=== PATIENT | female | born 1990 | race Caucasian/White ===

== ENCOUNTER → 2018-05-22 | Outpatient (CLI) | payer BC ==
[2018-05-23 13:08] LABS: Beef IgE <0.35 kU/L (<0.35); Beef IgE Class CLASS 0
[2018-05-23 13:09] LABS: Avocado Class CLASS 0; Banana IgE Class CLASS 0; Hazelnut IgE <0.35 kU/L (<0.35); Hazelnut IgE Class CLASS 0; Kiwi IgE <0.35 kU/L (<0.35); Latex IgE Class CLASS 0
[2018-05-24 19:04] LABS: Coffee IgG 3.4 mcg/mL (< 2.0); Pork IgG 4.2 mcg/mL (< 2.0)
[2018-05-24 19:05] LABS: Chicken Meat IgG <2.0 mcg/mL (< 2.0); Corn IgG <2.0 mcg/mL (< 2.0); Cow's Milk IgG 53.7 mcg/mL (< 2.0); Peanut IgG <2.0 mcg/mL (< 2.0); Potato IgG <2.0 mcg/mL (< 2.0); Soybean IgG <2.0 mcg/mL (< 2.0); Tomato IgG <2.0 mcg/mL (< 2.0); Wheat IgG 3.9 mcg/mL (< 2.0)
== END | disposition home or self-care (01) ==
LOC: LABWHC1 17:04
PROVIDERS: ATTEND Otolaryngology
DX: L50.0 Allergic urticaria (principal); J30.89 Other allergic rhinitis; B44.89 Other forms of aspergillosis
CPT/HCPCS: 36415; 86001; 86003

== ENCOUNTER 2022-11-18 10:46 | Observation (INO) | payer BC ==
[2022-11-18] MEDS ORDERED: SODIUM CHLORIDE 0.9% 500 ML 500 ML IV STA (11:27)
[2022-11-18 12:13] LABS: Basophils % (A) 0 %; Eosinophils # (A) 0.1 k/uL (0-0.7); Eosinophils % (A) 1 %; HCT 38.1 % (34.0-46.0); Lymphocytes # (A) 2.7 k/uL (1.0-4.8); Lymphocytes % (A) 18 %; MCH 32.5 pg (25.0-35.0); MCHC 34.1 g/dL (31.0-37.0); MCV 95.3 fL (80.0-100.0); Mean Platelet Volume 7.5; Monocytes # (A) 0.3 k/uL (0-1.0); Monocytes % (A) 2 %; Neutrophils # (A) 11.7 k/uL (1.3-7.7); Neutrophils % (A) 78 %; Platelet Count 228 k/uL (150-450); RBC 3.99 m/uL (3.80-5.40); RDW 12.9 % (11.5-15.5); WBC 15.1 k/uL (3.8-10.6)
[2022-11-18 12:18] LABS: Appearance,Urine Cloudy (Clear); Bacteria,Urine Moderate /hpf; Bilirubin,Urine Negative (Negative); Blood,Urine Negative (Negative); Color,Urine Yellow; Glucose,Urine (UA) Negative (Negative); Ketones,Urine Negative (Negative); Leukocyte Esterase,Urine Small (Negative); Mucus,Urine Rare /hpf; Nitrite,Urine Negative (Negative); PH, Urine 6.5 (5.0-8.0); Protein,Urine Negative (Negative); Specific Gravity,Urine 1.015 (1.001-1.035); Squamous Epithelial Cell,Urine 2 /hpf (0-4); Urobilinogen,Urine <2.0 mg/dL (<2.0); WBC,Urine 5 /hpf (0-5)
[2022-11-18 12:24] LABS: ALT 17 U/L (4-34); AST 20 U/L (14-36); African American GFR (CKD) >90 (>60 ml/min/1.73 sqM); Albumin 3.6 g/dL (3.5-5.0); Alkaline Phosphatase 60 U/L (38-126); Anion Gap 8 mmol/L; Blood Urea Nitrogen 6 mg/dL (7-17); Calcium 9.9 mg/dL (8.4-10.2); Carbon Dioxide 22 mmol/L (22-30); Chloride 104 mmol/L (98-107); Glucose 87 mg/dL (74-99); Lipase 81 U/L (23-300); Non-African American GFR(CKD) >90 (>60 ml/min/1.73 sqM); Sodium 134 mmol/L (137-145); Total Bilirubin 0.3 mg/dL (0.2-1.3); Total Protein 6.1 g/dL (6.3-8.2)
[2022-11-18] MEDS ORDERED: ACETAMINOPHEN TAB 325 MG TAB PO STA (12:47)
--- NOTE | 2022-11-18 13:14 | US ---
EXAMINATION TYPE: US abdomen complete DATE OF EXAM: 11/18/2022 COMPARISON: 12/22/2015 CLINICAL INDICATION: Female, 32 years old with history of right flank pain, ; TECHNIQUE: Multiple sonographic images of the abdomen are obtained. FINDINGS: EXAM MEASUREMENTS: Liver Length: 14.1 cm Gallbladder Wall: 0.2 cm CBD: 0.5 cm Spleen: 11.3 cm Right Kidney: 12.2 x 4.9 x 5.3 cm Left Kidney: 10.6 x 4.4 x 4.4 cm GRAIN BUYER NOTES: Pancreas: wnl Liver: wnl Gallbladder: No stones seen Evidence for sonographic Ceja's sign: No CBD: wnl Spleen: wnl Right Kidney: mild hydronephrosis and hydroureter. Left Kidney: No hydronephrosis or masses seen Upper IVC: wnl Abd Aorta: wnl RLQ scanned with graded compressions, appendix not identified. IMPRESSION: Mild right hydronephrosis.
[2022-11-18] MEDS ORDERED: cefTRIAXone IN SWFI 1,000 MG/10 ML SYRINGE IVP STA (13:40)
[2022-11-18] MEDS ORDERED: LACTATED RINGERS 1,000 ML IV ONE (13:51)
[2022-11-18] MEDS ORDERED: NALOXONE 0.4 MG/ML 1 ML VIAL IV PRN (13:55)
--- NOTE | 2022-11-18 13:56 | ED ---
Abdominal Pain HPI - General Chief Complaint: Abdominal Pain Stated Complaint: 19wks preg,R side pain Time Seen by Provider: 11/18/22 11:11 Source: patient Mode of arrival: ambulatory Limitations: no limitations - History of Present Illness Initial Comments: 32-year-old female approximately 19 weeks 1 day who presents to the emergency department with right-sided flank pain. States it started yesterday and reports that it is colicky in nature. Pain radiates around to the right groin. No history of similar in the past. No fevers. Denies hematuria, dysuria or difficulty voiding. No vaginal bleeding or discharge. No constipation. Does admit to some mild diarrhea earlier today. No history of kidney stones. Took some Tylenol at 9 AM for pain. Admits nausea without vomiting. No other alleviating, precipitating or modifying factors - Related Data Home Medications Medication Instructions Recorded Confirmed Lty-Ktzr-Fcgjn Acid 1 cap PO DAILY 11/18/22 11/18/22 [-U Capsule (formulary)] Allergies Allergy/AdvReac Type Severity Reaction Status Date / Time lactose Allergy Itching Verified 11/18/22 15:45 sulfamethoxazole Allergy Rash/Hives Verified 11/18/22 15:45 [From Bactrim] trimethoprim [From Bactrim] Allergy Rash/Hives Verified 11/18/22 15:45 Review of Systems ROS Statement: Those systems with pertinent positive or pertinent negative responses have been documented in the HPI. ROS Other: All systems not noted in ROS Statement are negative. Past Medical History Additional Past Medical History / Comment(s): ABD PAIN, NAUSEA FOR OVER 2 MO. History of Any Multi-Drug Resistant Organisms: None Reported Past Surgical History: Adenoidectomy, Tonsillectomy Additional Past Surgical History / Comment(s): EGD 2013. septoplasty Past Anesthesia/Blood Transfusion Reactions: No Reported Reaction Past Psychological History: ADD/ADHD Past Alcohol Use History: Occasional Past Drug Use History: None Reported - Past Family History Mother Family Medical History: No Reported History General Exam Limitations: no limitations General appearance: alert, in no apparent distress Head exam: Present: atraumatic, normocephalic, normal inspection Eye exam: Present: normal appearance, PERRL, EOMI. Absent: scleral icterus, conjunctival injection, periorbital swelling ENT exam: Present: normal exam, mucous membranes moist Neck exam: Present: normal inspection. Absent: tenderness, meningismus, lymphadenopathy Respiratory exam: Present: normal lung sounds bilaterally. Absent: respiratory distress, wheezes, rales, rhonchi, stridor Cardiovascular Exam: Present: regular rate, normal rhythm, normal heart sounds. Absent: systolic murmur, diastolic murmur, rubs, gallop, clicks GI/Abdominal exam: Present: soft, normal bowel sounds. Absent: distended, tende rness, guarding, rebound, rigid Extremities exam: Present: normal inspection, full ROM, normal capillary refill. Absent: tenderness, pedal edema, joint swelling, calf tenderness Back exam: Present: CVA tenderness (R) Neurological exam: Present: alert, oriented X3, CN II-XII intact Psychiatric exam: Present: normal affect, normal mood Skin exam: Present: warm, dry, intact, normal color. Absent: rash Course Vital Signs 11/18/22 11/18/22 11:06 15:06 Temperature 97.8 F 98.6 F Pulse Rate 81 99 Respiratory 16 18 Rate Blood Pressure 121/87 120/66 O2 Sat by Pulse 98 99 Oximetry Medical Decision Making - Medical Decision Making Was pt. sent in by a medical professional or institution (, PA, CURVE SAW OPERATOR, urgent care, hospital, or senior care...) When possible be specific @ -No Did you speak to anyone other than the patient for history (EMS, parent, family, police, friend...)? What history was obtained from this source @ -No Did you review nursing and triage notes (agree or disagree)? Why? @ -I reviewed and agree with nursing and triage notes Were old charts reviewed (outside hosp., previous admission, EMS record, old EKG, old radiological studies, urgent care reports/EKG's, senior care records)? Report findings @ -No old charts were reviewed Differential Diagnosis (chest pain, altered mental status, abdominal pain women, abdominal pain men, vaginal bleeding, weakness, fever, dyspnea, syncope, headache, dizziness, GI bleed, back pain, seizure, CVA, palpatations, mental health, musculoskeletal)? @ -nephrolithiasis, pyelonephritis, hydronephrosis, renal mass, appendicitis EKG interpreted by me (3pts min.). @ -Not done X-rays interpreted by me (1pt min.). @ -None done CT interpreted by me (1pt min.). @ -None done U/S interpreted by me (1pt. min.). @ -right hydro What testing was considered but not performed or refused? (CT, X-rays, U/S, labs)? Why? @ -ct however patient is and not willing to have radiation What meds were considered but not given or refused? Why? @ -None Did you discuss the management of the patient with other professionals (professionals i.e. , PA, CURVE SAW OPERATOR, lab, RT, psych nurse, social service worker, iron piler, teacher, adult probation officer, employment case manager)? Give summary @ -Dr. Cabral Was smoking cessation discussed for >3mins.? @ -No Was critical care preformed (if so, how long)? @ -No Were there social determinants of health that impacted care today? How? (Home lessness, low income, unemployed, alcoholism, drug addiction, transportation, low edu. Level, literacy, decrease access to med. care, penitentiary, rehab)? @ -No Was there de-escalation of care discussed even if they declined (Discuss DNR or withdrawal of care, Hospice)? DNR status @ -No What co-morbidities impacted this encounter? (DM, HTN, Smoking, COPD, CAD, Cancer, CVA, ARF, Chemo, Hep., AIDS, mental health diagnosis, sleep apnea, morbid obesity)? @ -None Was patient admitted / discharged? Hospital course, mention meds given and route, prescriptions, significant lab abnormalities, going to OR and other pertinent info. @ -Upon arrival patient was placed into room 4. Thorough history and physical exam is performed. IV access is established and she is given a liter bolus normal saline. Laboratory studies are conducted and reviewed. White count of 15.1. Urinalysis demonstrates moderate bacteria. Ultrasound was performed which demonstrates right-sided hydronephrosis. Blood cultures are obtained. I did call and speak with Dr. Cabral. Patient will be admitted to family unit with orders for Tylenol for pain. I did order Ancef for antibiotics. He would like lactated Ringer's going at 150 per hour. Strain all urine. Urine culture is pending. Patient will be taken to the floor in stable condition Undiagnosed new problem with uncertain prognosis? @ -yes Drug Therapy requiring intensive monitoring for toxicity (Heparin, Nitro, Insulin, Cardizem)? @ -No Were any procedures done? @ -No Diagnosis/symptom? @ -acute right flank pain, acute pyeliphritis, second trimester Acute, or Chronic, or Acute on Chronic? @ -acute Uncomplicated (without systemic symptoms) or Complicated (systemic symptoms)? @ -complicated Side effects of treatment? @ - No Exacerbation, Progression, or Severe Exacerbation? @ -No Poses a threat to life or bodily function? How? (Chest pain, [place], [place], pneumonia, PE, COPD, DKA, ARF, appy, cholecystitis, CVA, Diverticulitis, Homicidal, Suicidal, threat to staff... and all critical care pts) @ -No - Lab Data Result diagrams: 11/19/22 07:09 11/19/22 07:09 Lab Results 11/18/22 11/18/22 11/18/22 Range/Units 12:08 12:08 12:08 WBC 15.1 H (3.8-10.6) k/uL RBC 3.99 (3.80-5.40) m/uL Hgb 13.0 (11.4-16.0) gm/dL Hct 38.1 (34.0-46.0) % MCV 95.3 (80.0-100.0) fL MCH 32.5 (25.0-35.0) pg MCHC 34.1 (31.0-37.0) g/dL RDW 12.9 (11.5-15.5) % Plt Count 228 (150-450) k/uL MPV 7.5 Neutrophils % 78 % Lymphocytes % 18 % Monocytes % 2 % Eosinophils % 1 % Basophils % 0 % Neutrophils # 11.7 H (1.3-7.7) k/uL Lymphocytes # 2.7 (1.0-4.8) k/uL Monocytes # 0.3 (0-1.0) k/uL Eosinophils # 0.1 (0-0.7) k/uL Basophils # 0.0 (0-0.2) k/uL Sodium 134 L (137-145) mmol/L Potassium 4.0 (3.5-5.1) mmol/L Chloride 104 (98-107) mmol/L Carbon Dioxide 22 (22-30) mmol/L Anion Gap 8 mmol/L BUN 6 L (7-17) mg/dL Creatinine 0.43 L (0.52-1.04) mg/dL Est GFR (CKD-EPI)AfAm >90 (>60 ml/min/1.73 sqM) Est GFR (CKD-EPI)NonAf >90 (>60 ml/min/1.73 sqM) Glucose 87 (74-99) mg/dL Calcium 9.9 (8.4-10.2) mg/dL Total Bilirubin 0.3 (0.2-1.3) mg/dL AST 20 (14-36) U/L ALT 17 (4-34) U/L Alkaline Phosphatase 60 (38-126) U/L Total Protein 6.1 L (6.3-8.2) g/dL Albumin 3.6 (3.5-5.0) g/dL Lipase 81 (23-300) U/L Urine Color Yellow Urine Appearance Cloudy H (Clear) Urine pH 6.5 (5.0-8.0) Ur Specific [place] 1.015 (1.001-1.035) Urine Protein Negative (Negative) Urine Glucose (UA) Negative (Negative) Urine Ketones Negative (Negative) Urine Blood Negative (Negative) Urine Nitrite Negative (Negative) Urine Bilirubin Negative (Negative) Urine Urobilinogen <2.0 (<2.0) mg/dL Ur Leukocyte Esterase Small H (Negative) Urine WBC 5 (0-5) /hpf Ur Squamous Epith Cells 2 (0-4) /hpf Urine Bacteria Moderate H (None) /hpf Urine Mucus Rare H (None) /hpf Disposition Clinical Impression: Flank pain, Pyelonephritis, Second trimester , Leukocytosis Disposition: ADMITTED IP TO THIS [facility] Condition: Good Is patient prescribed a controlled substance at d/c from ED?: No Time of Disposition: 13:55 Decision to Admit Reason: Admit from EC Decision Date: 11/18/22 Decision Time: 13:55
[2022-11-18] MEDS: ACETAMINOPHEN TAB 325 MG TAB PO PRN ×2 (17:09→22:47)
[2022-11-18] MEDS ORDERED: NALBUPHINE 10 MG/ML (10 ML MDV) IV PRN (17:30)
--- NOTE | 2022-11-18 17:39 | P.HPOB ---
History of Present Illness H&P Date: 11/18/22 Chief Complaint: Right flank pain This patient is a pleasant 32-year-old 1 para 0 female estimated date of confinement 04/12/2023 estimated gestational age 19-3/7 weeks who presented to the emergency department this morning with complaints of right flank pain that started last evening. Patient states the pain was severe left lower back and radiates into her groin. She did have an episode of nausea last evening. Patient's care is per Dr. Johnson appears to be uncomplicated. She has had normal ultrasound which changed her due date. Patient denies any vaginal bleeding. Patient has no history of previous past medical problems. Review of Systems Constitutional: Reports as per HPI Genitourinary: Reports as per HPI, Reports Menstruation: Reports amenorrhea Past Medical History Past Medical History: No Reported History Additional Past Medical History / Comment(s): ABD PAIN, NAUSEA FOR OVER 2 MO. History of Any Multi-Drug Resistant Organisms: None Reported Past Surgical History: Adenoidectomy, Tonsillectomy Additional Past Surgical History / Comment(s): EGD 2012. septoplasty Past Anesthesia/Blood Transfusion Reactions: No Reported Reaction Past Psychological History: ADD/ADHD Smoking Status: Never smoker Past Alcohol Use History: Occasional Past Drug Use History: None Reported - Past Family History Mother Family Medical History: No Reported History Medications and Allergies Home Medications Medication Instructions Recorded Confirmed Type Gsb-Xowz-Zzmbc Acid 1 cap PO DAILY 11/18/22 11/18/22 History [-U Capsule (formulary)] Allergies Allergy/AdvReac Type Severity Reaction Status Date / Time lactose Allergy Itching Verified 11/18/22 15:45 sulfamethoxazole Allergy Rash/Hives Verified 11/18/22 15:45 [From Bactrim] trimethoprim [From Bactrim] Allergy Rash/Hives Verified 11/18/22 15:45 Exam Vital Signs Temp Pulse Pulse Resp BP BP Pulse Ox 11/18/22 15:30 97.6 F 81 16 107/63 100 11/18/22 15:06 98.6 F 99 18 120/66 99 11/18/22 11:06 97.8 F 81 16 121/87 98 Intake and Output 11/18/22 11/18/22 11/18/22 06:59 14:59 22:59 Other: Weight 81.647 kg 81.647 kg - OBG Physical Exam Abdomen: bowel sounds normal, no diffuse tenderness, no bruit present, no guarding noted, no hepatomegaly, no splenomegaly, no mass Uterus: enlarged Results Right upper quadrant ultrasound shows no evidence of gallstones. No kidney stones are visualized however she does have some mild right hydronephrosis c onsistent with physiologic changes from . CBC shows a white count of 15. Urine shows some white blood cells but small amount of bacteria. Result Diagrams: 11/18/22 12:08 11/18/22 12:08 Abnormal Lab Results - Last 24 Hours (Table) 11/18/22 11/18/22 11/18/22 Range/Units 12:08 12:08 12:08 WBC 15.1 H (3.8-10.6) k/uL Neutrophils # 11.7 H (1.3-7.7) k/uL Sodium 134 L (137-145) mmol/L BUN 6 L (7-17) mg/dL Creatinine 0.43 L (0.52-1.04) mg/dL Total Protein 6.1 L (6.3-8.2) g/dL Urine Appearance Cloudy H (Clear) Ur Leukocyte Esterase Small H (Negative) Urine Bacteria Moderate H (None) /hpf Urine Mucus Rare H (None) /hpf Assessment and Plan Assessment: This is a pleasant 32-year-old 1 para 0 female 19-3/7 weeks gestation admitted to labor and delivery with right flank pain. At this time imaging study shows no evidence of kidney stones however her clinical history is very suggestive of this. Urinalysis does have some bacteria. Her white blood cell count is 15 however this also can be normal physiologic changes from . At this time patient is going to be admitted for IV hydration, IV antibiotics, urine culture, and pain control. I explained to the patient the possible etiologies that could include kidney stones, pyelonephritis, or ureteral colic secondary to compression of the uterus. We'll continue to strain her urine and continue IV hydration. Repeat CBC tomorrow morning and check urine culture. (1) Flank pain Current Visit: Yes Status: Acute Code(s): R10.9 - UNSPECIFIED ABDOMINAL PAIN SNOMED Code(s): 674761215 (2) Second trimester Current Visit: Yes Status: Acute Code(s): Z34.92 - ENCNTR FOR SUPRVSN OF NORMAL PREG, UNSP, SECOND TRIMESTER SNOMED Code(s): 31104550
[2022-11-19] MEDS: ACETAMINOPHEN TAB 325 MG TAB PO PRN ×3 (04:03→17:47)
--- NOTE | 2022-11-19 07:23 | P.PN ---
Progress Note - Text Progress Note Date: 11/19/22 Hospital day #2. Patient is 19 weeks and 4 days. Patient's rested overnight however approximately 4:00am this morning states that she had a severe pain on the right side again radiating more to her groin. This is sense improved. Repeat labs are pending. Urine culture is pending. Patient's vital signs are stable she is afebrile. Exam shows mild low flank pain. Plan today is to continue IV hydration, anti-and headaches and pain control. Patient improves today she could potentially go home follow up with Dr. Johnson in 1 week. Otherwise will continue inpatient observation.
[2022-11-19 07:30] LABS: Basophils % (A) 0 %; Eosinophils % (A) 0 %; HCT 33.9 % (34.0-46.0); HGB 11.8 gm/dL (11.4-16.0); Lymphocytes # (A) 2.9 k/uL (1.0-4.8); Lymphocytes % (A) 20 %; MCH 32.2 pg (25.0-35.0); MCHC 34.8 g/dL (31.0-37.0); MCV 92.6 fL (80.0-100.0); Mean Platelet Volume 7.6; Monocytes # (A) 0.5 k/uL (0-1.0); Monocytes % (A) 3 %; Neutrophils % (A) 75 %; Platelet Count 200 k/uL (150-450); RBC 3.66 m/uL (3.80-5.40); RDW 13.2 % (11.5-15.5); WBC 14.6 k/uL (3.8-10.6)
[2022-11-19] MEDS: ONDANSETRON 4 MG/2 ML VIAL IVP PRN ×2 (07:45→17:48)
[2022-11-19 07:46] LABS: African American GFR (CKD) >90 (>60 ml/min/1.73 sqM); Anion Gap 5 mmol/L; Blood Urea Nitrogen 4 mg/dL (7-17); Calcium 8.7 mg/dL (8.4-10.2); Carbon Dioxide 22 mmol/L (22-30); Chloride 107 mmol/L (98-107); Glucose 92 mg/dL (74-99); Non-African American GFR(CKD) >90 (>60 ml/min/1.73 sqM); Potassium 3.8 mmol/L (3.5-5.1); Sodium 134 mmol/L (137-145)
[2022-11-19] MEDS: LACTATED RINGERS 1,000 ML IV SCH (17:48)
[2022-11-20 00:04] VITALS: RESP 16
[2022-11-20] MEDS: LACTATED RINGERS 1,000 ML IV SCH ×2 (00:22→06:46)
[2022-11-20 07:54] VITALS: BP 110/71; PULSE 83; TEMP 98.8
--- NOTE | 2022-11-20 08:13 | P.PN ---
Progress Note - Text Progress Note Date: 11/20/22 Hospital day #3. Patient is 19 weeks and 5 days. Patient slept overnight and states that her pain has almost completely dissipated. Just a dull ache this morning. Urine culture and blood cultures were negative. She's been afebrile. She is not been taking any pain medications since last evening. Plan today is to discharge home follow up with Dr. Johnson in 1 week.
--- NOTE | 2022-11-20 08:20 | P.DS ---
Providers Date of admission: 11/18/22 13:55 Expected date of discharge: 11/20/22 Attending physician: Flavio Jin Primary care physician: Jamel Basilio - Discharge Diagnosis(es) (1) Flank pain Current Visit: Yes Status: Acute (2) Second trimester Current Visit: Yes Status: Acute Hospital Course: Please see dictated H&P on this patient's admission. Brief summary this is a pleasant 32-year-old 1 para 0 female 19-1/2 weeks gestation admitted Jameson evening with complaints of severe right flank pain. Patient is started on IV antibiotics, IV fluids and pain medications. Imaging tests were negative. Urine culture returned negative as well. Patient improved and on hospital day #3 had resolution of her flank pain. At this time we did not think this was pyelonephritis, but possibly a kidney stone although none was seen on imaging. Patient was discharged home follow up with Dr. Johnson in 1 week. Patient Condition at Discharge: Good Plan - Discharge Summary Discharge Rx Participant: No New Discharge Prescriptions: No Action Alw-Nuqi-Kqzei Acid [-U Capsule (formulary)] 1 cap PO DAILY Discharge Medication List Gnf-Blry-Bldil Acid [-U Capsule (formulary)] 1 cap PO DAILY 11/18/22 [History] Follow up Appointment(s)/Referral(s): Marcy Johnson DO [Family Provider] - 1 Week Patient Instructions/Handouts: Kidney Stones (GEN) Activity/Diet/Wound Care/Special Instructions: Please continue to hydrate with plenty of fluids. Continue to strain your urine for possible kidney stones. See Dr. Johnson next week for follow-up. Discharge Disposition: HOME SELF-CARE
== END 2022-11-20 08:30 | disposition home or self-care (01) ==
LOC: EC 10:46 → 6NMEDSUR 13:55 → 4FBP 14:57
PROVIDERS: ADMIT Obstetrics & Gynecology; ATTEND Obstetrics & Gynecology
DX: O99.891 Other specified diseases and conditions complicating pregnancy (principal); O99.342 Other mental disorders complicating pregnancy, second trimester; N13.30 Unspecified hydronephrosis; F90.9 Attention-deficit hyperactivity disorder, unspecified type; Z3A.19 19 weeks gestation of pregnancy; Z79.899 Other long term (current) drug therapy; Z88.2 Allergy status to sulfonamides; Z88.1 Allergy status to other antibiotic agents
CPT/HCPCS: 96376; 96361 ×3; 96375; 96365 ×2; 96366; 99285; 36415; 80053; 80048; 83690; 85025 ×2; 81001; 87040; 87086; 76700; G0378 ×4; J2300; J0690 ×2; J2405

== ENCOUNTER 2023-04-04 03:47 | Outpatient (CLI) | payer BC | END 2023-04-04 06:40 | disposition home or self-care (01) | LOC: FBPOP 03:47 | PROVIDERS: ATTEND Obstetrics & Gynecology | DX: Z53.9 Procedure and treatment not carried out, unspecified reason (principal) | CPT/HCPCS: 59025; 84112; 99213 ==

== ENCOUNTER 2023-04-05 02:47 | Inpatient (IN) | payer BC ==
[2023-04-05] MEDS ORDERED: miSOPROStoL 200 MCG TAB PO PRN (03:17)
[2023-04-05] MEDS ORDERED: LIDOCAINE 0.5% (PF) 5 MG/ML (50 ML SDV) SQ PRN (03:17)
[2023-04-05] MEDS ORDERED: CARBOPROST TROMETHAMINE 250 MCG/ML 1 ML AMP IM PRN (03:17)
[2023-04-05] MEDS ORDERED: OXYTOCIN 10 UNIT/ML 1 ML VIAL IM PRN (03:17)
[2023-04-05] MEDS ORDERED: TRANEXAMIC 1,000 MG/100ML-NACL 1,000 MG in EMPTY BAG 1 BAG IV PRN (03:17)
[2023-04-05] MEDS ORDERED: METHYLERGONOVINE 0.2 MG/ML 1 ML AMP IM PRN (03:17)
[2023-04-05] MEDS ORDERED: TERBUTALINE 1 MG/ML VIAL SQ PRN (03:17)
[2023-04-05] MEDS: LACTATED RINGERS 1,000 ML IV SCH ×2 (03:30→13:43)
[2023-04-05] MEDS ORDERED: OXYTOCIN 30 UNITS/500 ML NS 30 UNIT in SALINE 1 500ML.BAG IV SCH (03:30)
[2023-04-05] MEDS ORDERED: NALBUPHINE 10 MG/ML (10 ML MDV) IV PRN (03:52)
[2023-04-05 04:02] LABS: Basophils # (A) 0.1 k/uL (0-0.2); Basophils % (A) 1 %; Eosinophils # (A) 0.2 k/uL (0-0.7); Eosinophils % (A) 1 %; HCT 32.9 % (34.0-46.0); HGB 11.3 gm/dL (11.4-16.0); Lymphocytes # (A) 3.5 k/uL (1.0-4.8); Lymphocytes % (A) 25 %; MCH 30.4 pg (25.0-35.0); MCHC 34.3 g/dL (31.0-37.0); MCV 88.5 fL (80.0-100.0); Mean Platelet Volume 8.5; Monocytes # (A) 0.6 k/uL (0-1.0); Monocytes % (A) 4 %; Neutrophils # (A) 9.3 k/uL (1.3-7.7); Neutrophils % (A) 66 %; Platelet Count 246 k/uL (150-450); RBC 3.71 m/uL (3.80-5.40); RDW 14.6 % (11.5-15.5)
[2023-04-05] MEDS ORDERED: ROPIVACAINE 5 MG/ML 30 ML VIAL ONE (04:11)
[2023-04-05] MEDS ORDERED: fentaNYL (PF) 50 MCG/ML 5 ML AMP ONE (04:11)
[2023-04-05] MEDS ORDERED: SODIUM CHLORIDE 0.9% 250 ML BAG ONE (04:11)
[2023-04-05 04:17] LABS: ALT 17 U/L (4-34); AST 26 U/L (14-36); African American GFR (CKD) >90 (>60 ml/min/1.73 sqM); Albumin 3.3 g/dL (3.5-5.0); Alkaline Phosphatase 204 U/L (38-126); Anion Gap 12 mmol/L; Blood Urea Nitrogen 9 mg/dL (7-17); Calcium 8.9 mg/dL (8.4-10.2); Carbon Dioxide 18 mmol/L (22-30); Chloride 105 mmol/L (98-107); Glucose 84 mg/dL (74-99); LDH 221 U/L (120-246); Non-African American GFR(CKD) >90 (>60 ml/min/1.73 sqM); Potassium 3.8 mmol/L (3.5-5.1); Sodium 135 mmol/L (137-145); Total Bilirubin 0.4 mg/dL (0.2-1.3); Uric Acid 6.3 mg/dL (3.7-7.4)
[2023-04-05 04:18] LABS: Creatinine,Urine Random 63.1 mg/dL; Protein/Creatinine Ratio,Urine 0.365
--- NOTE | 2023-04-05 06:29 | P.HPOB ---
History of Present Illness H&P Date: 04/05/23 Chief Complaint: Contractions This patient is a pleasant 32-year-old 1 para 0 female estimated date of confinement 04/12/2023 estimated gestational age 39-0/7 weeks who presents to labor and delivery with complaints of contractions. Patient was here yesterday with similar complaints and was 3-4 cm dilated and now is even more uncomfortable and 4 cm dilated thought to be in early active labor. Patient's initial blood pressure on arrival was 162/92, and several other elevated blood pressures. Apparently she was here yesterday and had similar blood pressure florentino vations 153/104 however they came down over time. Patient denies headache and visual changes. She is not had any blood pressure problems throughout the . was complicated by an admission at 20 weeks for back pain and suspected kidney stones. otherwise has been uncomplicated. Review of Systems Genitourinary: Reports Menstruation: Reports amenorrhea Past Medical History Past Medical History: No Reported History Additional Past Medical History / Comment(s): ABD PAIN, NAUSEA FOR OVER 2 MO. History of Any Multi-Drug Resistant Organisms: None Reported Past Surgical History: Adenoidectomy, Tonsillectomy Additional Past Surgical History / Comment(s): EGD 2012. septoplasty Past Anesthesia/Blood Transfusion Reactions: No Reported Reaction Past Psychological History: ADD/ADHD Smoking Status: Never smoker Past Alcohol Use History: Occasional Past Drug Use History: None Reported - Past Family History Mother Family Medical History: No Reported History Medications and Allergies Home Medications Medication Instructions Recorded Confirmed Type Bcy-Mmdl-Virfj Acid 1 cap PO DAILY 11/18/22 04/05/23 History [-U Capsule (formulary)] Allergies Allergy/AdvReac Type Severity Reaction Status Date / Time lactose Allergy Itching Verified 04/05/23 02:50 sulfamethoxazole Allergy Rash/Hives Verified 04/05/23 02:50 [From Bactrim] trimethoprim [From Bactrim] Allergy Rash/Hives Verified 04/05/23 02:50 Exam Intake and Output 04/04/23 04/04/23 04/05/23 14:59 22:59 06:59 Other: # Voids 1 Weight 90.718 kg - OBG Physical Exam Abdomen: bowel sounds normal, no diffuse tenderness, no bruit present, no guarding noted, no hepatomegaly, no splenomegaly, no mass Vulva: both: normal Vagina: normal moisture, no discharge Cervix: no lesion (Cervix on arrival is 4 cm dilated), no discharge Uterus: enlarged Results labs show she is A positive, rubella nonimmune, RPR is nonreactive, hepatitis B and C are negative, HIV is nonreactive, group B strep was negative, growth and anatomy ultrasounds have been normal. Result Diagrams: 04/05/23 03:30 04/05/23 03:30 Abnormal Lab Results - Last 24 Hours (Table) 04/05/23 04/05/23 Range/Units 03:30 03:30 WBC 14.0 H (3.8-10.6) k/uL RBC 3.71 L (3.80-5.40) m/uL Hgb 11.3 L (11.4-16.0) gm/dL Hct 32.9 L (34.0-46.0) % Neutrophils # 9.3 H (1.3-7.7) k/uL Sodium 135 L (137-145) mmol/L Carbon Dioxide 18 L (22-30) mmol/L Alkaline Phosphatase 204 H (38-126) U/L Total Protein 6.0 L (6.3-8.2) g/dL Albumin 3.3 L (3.5-5.0) g/dL Assessment and Plan Assessment: This is a pleasant 32-year-old 1 para 0 female 39-0/7 weeks gestation who presents to labor and delivery in active labor and also has elevated blood pressures. Preeclampsia labs are normal with the exception of an elevated PC ratio. Patient is asymptomatic at this time. Plan is pain control per patient choice and anticipate vaginal delivery. At this time I do not think magnesium sulfate is indicated however this may need to be started if she has persistent elevated blood pressures or symptomatology. (1) 39 weeks gestation of Current Visit: Yes Status: Acute Code(s): Z3A.39 - 39 WEEKS GESTATION OF SNOMED Code(s): 77128800 (2) Normal labor Current Visit: Yes Status: Acute Code(s): O80 - ENCOUNTER FOR FULL-TERM UNCOMPLICATED DELIVERY; Z37.9 - OUTCOME OF DELIVERY, UNSPECIFIED SNOMED Cod e(s): 31958442 (3) Preeclampsia Current Visit: Yes Status: Acute Code(s): O14.90 - UNSPECIFIED PRE- ECLAMPSIA, UNSPECIFIED TRIMESTER SNOMED Code(s): 915008138
[2023-04-05] MEDS ORDERED: diphenhydrAMINE 25 MG CAP PO PRN (13:43)
[2023-04-05] MEDS ORDERED: LANOLIN CREAM 5 GM TUBE TOPICAL PRN (13:43)
[2023-04-05] MEDS ORDERED: ACETAMINOPHEN TAB 325 MG TAB PO PRN (13:43)
[2023-04-05] MEDS ORDERED: IBUPROFEN 600 MG TAB PO PRN (13:43)
[2023-04-05] MEDS ORDERED: SIMETHICONE 80 MG CHEWABLE PO PRN (13:43)
[2023-04-05] MEDS ORDERED: MEASLES-MUMPS-RUBELLA VACC/PF 12,500 UNIT/0.5 ML VIAL SQ ONE (13:43)
[2023-04-05] MEDS ORDERED: HYDROCORTISONE 2.5% RECTAL CREAM 30 GM TUBE RECTAL PRN (13:43)
[2023-04-05] MEDS ORDERED: diphenhydrAMINE 50 MG CAP PO PRN (13:43)
[2023-04-05] MEDS ORDERED: BENZOCAINE/MENTHOL SPRAY 1 GM/SPRAY AEROSOL TOPICAL PRN (13:43)
[2023-04-05] MEDS ORDERED: ZOLPIDEM 5 MG TAB PO PRN (13:43)
[2023-04-05] MEDS ORDERED: diphenhydrAMINE 50 MG/ML 1 ML VIAL IVP PRN ×2 (13:43)
[2023-04-05] MEDS ORDERED: MAGNESIUM SULFATE-WATER PMX 4 GM in WATER FOR INJECTION 1 100ML.BAG IVPB ONE (17:00)
[2023-04-05] MEDS: MAGNESIUM SULFATE-WATER PMX 20 GM in WATER FOR INJECTION 1 500ML.BAG IV SCH (17:40)
[2023-04-06] MEDS: SENNOSIDES-DOCUSATE SODIUM 1 EACH TAB PO SCH ×2 (02:29→08:06)
[2023-04-06] MEDS: MAGNESIUM SULFATE-WATER PMX 20 GM in WATER FOR INJECTION 1 500ML.BAG IV SCH (03:47)
[2023-04-06 06:19] LABS: Basophils # (A) 0.1 k/uL (0-0.2); Basophils % (A) 0 %; Eosinophils # (A) 0.1 k/uL (0-0.7); Eosinophils % (A) 1 %; HCT 27.5 % (34.0-46.0); Lymphocytes # (A) 3.6 k/uL (1.0-4.8); Lymphocytes % (A) 19 %; MCH 30.5 pg (25.0-35.0); MCHC 33.8 g/dL (31.0-37.0); MCV 90.2 fL (80.0-100.0); Monocytes # (A) 0.6 k/uL (0-1.0); Monocytes % (A) 3 %; Neutrophils # (A) 13.8 k/uL (1.3-7.7); Neutrophils % (A) 74 %; Platelet Count 195 k/uL (150-450); RBC 3.04 m/uL (3.80-5.40); RDW 14.8 % (11.5-15.5); WBC 18.6 k/uL (3.8-10.6)
[2023-04-06 06:20] LABS: HGB 9.3 gm/dL (11.4-16.0)
--- NOTE | 2023-04-06 07:06 | P.PROBDLV ---
Vaginal Delivery Note - . Vaginal Delivery Note: 32-year-old presented at 39 weeks gestation in active labor. Her cervix is 4 cm dilated, 80% effaced, -2 station. She is harriet every 2-4 minutes. heart tones 135 with moderate variability and reactive. Amniotomy was performed at 6:45 AM and clear fluid noted. She did get an epidural and was comfortable. Her cervix was completely dilated by 9:59 AM. She pushed, delivered a viable male infant over intact perineum under epidural anesthesia at 10:35 AM. Head delivered OA, nuchal cord 1 easily reduced, anterior shoulder delivered gentle downward guidance followed by posterior shoulder and rest of body. Nose and mouth bulb suctioned, cord clamped and cut, infant placed on mother's abdomen. Apgars 9, 9, weight 8 pounds 4.5 ounces. Placenta delivered spontaneously, intact with three-vessel cord at 10:38 AM. Vagina, cervix, perineum were inspected. First-degree midline laceration was repaired with 3-0 Vicryl. Estimated blood loss 200 mL. Mother and baby in stable condition.
--- NOTE | 2023-04-06 07:08 | P.PNOBGVD ---
Subjective - Subjective Principal diagnosis: Status post normal vaginal delivery day #1 Interval history: Patient seen and examined. Denies nausea, vomiting, chest pain, shortness of breath or calf pain. Overnight patient did have some elevated blood pressures and her PC ratio was 0.365. She was started on magnesium sulfate 4 g bolus and 2 g an hour. She's been having blood pressures of 120s over 80s and diuresing well. I will taken magnesium sulfate off and 14 hours and keep her for 5-6 hours from now to see if her blood pressures go back up. Plan was discussed with patient and her and they express understanding. Patient reports: Reports appetite normal, Reports voiding normally, Reports pain well controlled : doing well Objective - Latest Vital Signs Latest vital signs: Vital Signs Temp Pulse Resp BP Pulse Ox 04/06/23 06:51 102 H 16 127/80 97 04/06/23 05:57 95.7 F L 86 16 119/72 97 04/06/23 05:00 90 17 121/77 98 04/06/23 03:54 88 17 128/77 97 04/06/23 03:00 94 17 141/88 98 04/06/23 02:00 96.5 F L 101 H 16 137/80 97 04/06/23 00:52 94 17 128/79 97 04/06/23 00:00 91 17 131/84 97 04/05/23 23:00 95 17 147/84 96 04/05/23 22:00 96 17 120/71 97 04/05/23 21:00 97.7 F 94 17 142/82 97 04/05/23 20:00 100 17 139/87 98 04/05/23 19:00 97.8 F 105 H 18 129/86 99 04/05/23 18:02 108 H 18 141/79 04/05/23 17:47 108 H 18 138/82 04/05/23 17:32 87 18 143/85 04/05/23 17:17 87 18 134/75 04/05/23 16:45 90 150/98 04/05/23 16:00 98.2 F 69 18 150/84 04/05/23 12:44 98.1 F 96 18 136/78 98 04/05/23 12:14 98.1 F 103 H 18 142/84 98 04/05/23 11:39 98.5 F 108 H 18 138/85 98 04/05/23 11:29 93 18 130/80 99 04/05/23 11:14 100 18 135/76 99 04/05/23 10:56 97.2 F L 97 18 132/80 99 04/05/23 10:44 97.4 F L 110 H 18 139/87 100 Intake and Output 04/05/23 04/06/23 04/06/23 22:59 06:59 14:59 Intake Total 925 1625 Output Total 1900 1950 Balance -975 -325 Intake: IV 625 1125 Lactated Ringers 1,000 ml 375 675 @ 125 mls/hr IV .Q8H DANIELE Rx#:[id number] Magnesium Sulfate-Water 150 450 Pmx 20 gm In Water For Injection 1 500ml.bag @ 2 GM/HR 50 mls/hr IV .Q10H DANIELE Rx#:[id number] Magnesium Sulfate-Water 100 Pmx 4 gm In Water For Injection 1 100ml.bag @ 300 mls/hr IVPB ONCE ONE Rx#:[id number] Intake, IV Titration 100 500 Amount Magnesium Sulfate-Water 100 500 Pmx 20 gm In Water For Injection 1 500ml.bag @ 2 GM/HR 50 mls/hr IV .Q10H DANIELE Rx#:[id number] Oral 200 Output: Urine 1900 1950 Other: # Voids 1 Weight 84.595 kg - Exam Lungs: bilateral: normal Chest: Normal S1, Normal S2 Extremities: Present: normal Abdomen: Present: normal appearance, soft Uterus: Present: normal, firm - Labs Labs: Abnormal Lab Results - Last 24 Hours (Table) 04/06/23 Range/Units 06:06 WBC 18.6 H (3.8-10.6) k/uL RBC 3.04 L (3.80-5.40) m/uL Hgb 9.3 L D (11.4-16.0) gm/dL Hct 27.5 L (34.0-46.0) % Neutrophils # 13.8 H (1.3-7.7) k/uL Assessment and Plan (1) Status post normal vaginal delivery Current Visit: Yes Status: Acute Code(s): [id number] - SNOMED Code(s): 914604155 (2) Preeclampsia Current Visit: Yes Status: Acute Code(s): O14.90 - UNSPECIFIED PRE- ECLAMPSIA, UNSPECIFIED TRIMESTER SNOMED Code(s): 858842704 Plan: 1. DC magnesium sulfate and Heaton catheter 2. Watch for rebound blood pressures 3. Possible discharge later today.
[2023-04-06 08:16] VITALS: RESP 18; TEMP 97.9
[2023-04-06 12:19] VITALS: BP 131/76; PULSE 77
== END 2023-04-06 13:30 | disposition home or self-care (01) | DRG 807 ==
LOC: FBPOP 02:47 → 4FBP 03:10
PROVIDERS: ADMIT Obstetrics & Gynecology; ATTEND Obstetrics & Gynecology
PROC: 10E0XZZ Delivery of Products of Conception, External Approach (ICD-10-PCS; principal; 2023-04-05)
PROC: 0HQ9XZZ Repair Perineum Skin, External Approach (ICD-10-PCS; 2023-04-05)
PROC: 10907ZC Drainage of Amniotic Fluid, Therapeutic from Products of Conception, Via Natural or Artificial Opening (ICD-10-PCS; 2023-04-05)
DX: O15.1 Eclampsia complicating labor (principal); O69.81X0 Labor and delivery complicated by cord around neck, without compression, not applicable or unspecified; O70.0 First degree perineal laceration during delivery; Z3A.39 39 weeks gestation of pregnancy; O14.94 Unspecified pre-eclampsia, complicating childbirth; O99.344 Other mental disorders complicating childbirth; F90.9 Attention-deficit hyperactivity disorder, unspecified type; Z88.2 Allergy status to sulfonamides; Z88.1 Allergy status to other antibiotic agents; Z37.0 Single live birth
CPT/HCPCS: 59025; 80053; 82570; 83615; 84156; 84550; 85025; 86850; 86900; 86901; 90707; 99213